=== PATIENT | male | born 1975 | race Caucasian/White ===

== ENCOUNTER 2017-07-27 13:30 | Emergency (ER) | payer SELFPAY ==
[~2017-07-27] VITALS: Ht 172.7 cm; Wt 71.8 kg
[2017-07-27] MEDS ORDERED: KETOROLAC 30 MG/1 ML IM ONE (14:30)
[2017-07-27] MEDS ORDERED: DIAZEPAM 5 MG TABLET PO ONE (14:30)
[2017-07-27] MEDS ORDERED: DIAZEPAM 5 MG TABLET ONE (14:57)
[2017-07-27] MEDS ORDERED: KETOROLAC 30 MG/1 ML ONE (14:58)
[2017-07-27 15:42] VITALS: BP 122/62
== END 2017-07-27 15:44 | disposition home or self-care (01) ==
LOC: EDBD 13:30 → ED 15:38
DX: S39.012A Strain of muscle, fascia and tendon of lower back, initial encounter (principal); F17.200 Nicotine dependence, unspecified, uncomplicated; X58.XXXA Exposure to other specified factors, initial encounter; Y93.89 Activity, other specified; Y92.89 Other specified places as the place of occurrence of the external cause; Y99.8 Other external cause status
CPT/HCPCS: 72110; 96372; 99284; J1885

== ENCOUNTER 2019-02-23 14:16 | Emergency (ER) | payer BC ==
[~2019-02-23] VITALS: Ht 172.7 cm; Wt 75.0 kg
--- NOTE | 2019-02-23 14:56 | NUR ---
THIS IS A 43 YO M W/ C/O CHRONIC BACK PAIN X15 YEARS W/ WORSENING PAIN 11/21 THIS MORNING AFTER A CHIROPRACTOR APPT. PATIENTS RESPIRATIONS ARE EVEN AND UNLABORED. NADN. PATIENT IS RESTING ON GURNEY AWAITING XRAY. CALL LIGHT IN REACH. DENIES FURTHER NEEDS AT THIS TIME.
[2019-02-23] MEDS ORDERED: KETOROLAC 30 MG/1 ML ONE (15:09)
[2019-02-23] MEDS ORDERED: HYDROmorphone 1 MG/ML, 1ML INJ ONE ×3 (15:09→17:59)
--- NOTE | 2019-02-23 15:09 | NUR ---
PT UP TO RESTROOM WITH SHUFFLE GAIT. SUGGESTED A URINAL BUT PT REFUSED.
[2019-02-23] MEDS ORDERED: ONDANSETRON ODT 4 MG ONE (15:19)
[2019-02-23] MEDS: HYDROmorphone 2 MG/ML, 1ML IVPush PRN ×2 (15:20→16:12)
--- NOTE | 2019-02-23 15:20 | NUR ---
VERBAL ORDER FOR 15MG TORADOL.
--- NOTE | 2019-02-23 15:22 | NUR ---
PATIENT MEDICATED PER EMAR.
--- NOTE | 2019-02-23 15:26 | NUR ---
XRAY DELAYED DUE TO PT NEEDING PAIN MEDS. RAD CALLED PT NOW RTG.
[2019-02-23] MEDS ORDERED: ONDANSETRON ODT 4 MG PO ONE (15:30)
[2019-02-23] MEDS ORDERED: KETOROLAC 30 MG/1 ML IM ONE (15:30)
[2019-02-23] MEDS ORDERED: HYDROmorphone 2 MG/ML, 1ML IM PRN (15:30)
[2019-02-23] MEDS ORDERED: KETOROLAC 30 MG/1 ML IVPush ONE (15:30)
--- NOTE | 2019-02-23 16:00 | NUR ---
PT INCREASINGLY AGITATED, YELLING OUT INTO [place]. CUSSING ABOUT STATING "I WANT YOU GUYS TO FIX ME, IM NOT A DRUG SEEKER".
--- NOTE | 2019-02-23 16:18 | NUR ---
PT TO MRI
--- NOTE | 2019-02-23 17:05 | NUR ---
PT BACK FROM MRI, STS STILL IN PAIN. PT VERY VERBALLY AGGRESSIVE WITH STAFF. THIS RN TRIED TO EXPLAIN TO PT THAT WE ARE CURRENTLY WAITING FOR RESULTS OF THE MRI TO DETERMINE THE NEXT STEP. EXPLAINED TO PT THAT MD HAS NOT BEEN BACK YET BECAUSE UNTIL RESULTS ARE BACK THERE IS NOTHING MORE WE CAN DO FOR HIS PAIN. ICE PACK OFFERED. PT REQUESTING HEAT. WARM BLANKET PROVIDED TO PT LOWER BACK. CALL LIGHT WITHIN REACH. FAMILY AT BEDSIDE. AWAITING RESULTS AT THIS TIME
--- NOTE | 2019-02-23 17:47 | NUR ---
MD TO BEDSIDE TO TALK WITH PT ABOUT WAITING FOR MRI RESULTS.
[2019-02-23] MEDS ORDERED: DIAZEPAM 5 MG/ML, 2ML ONE (17:58)
[2019-02-23] MEDS ORDERED: HYDROmorphone 2 MG/ML, 1ML IVPush ONE (18:00)
[2019-02-23] MEDS ORDERED: DIAZEPAM 5 MG/ML, 2ML IVPush ONE (18:00)
[2019-02-23 18:10] VITALS: BP 134/79
--- NOTE | 2019-02-23 18:13 | NUR ---
PROVIDER AT BEDSIDE EXPLAINING MRI RESULTS. PT AGITATED. STATES "I DON'T UNDERSTAND WHY I'M IN A HOSPITAL AND YOU GUYS CAN'T HELP ME".
--- NOTE | 2019-02-23 18:31 | NUR ---
PT MEDICATED WITH ADDITIONAL MEDS WHILE MD CAME TO UPDATE PT AND FAMILY ON POC. PT REFUSING TO LISTEN TO DIAGNOSIS AND NEED FOR F/U WITH SPECIALIST. PT THEN TOOK OFF ALL MONITORING, AND RIPPED OUT IV. THIS RN WENT TO MD TO GET REFERAL IN HOPES OF GIVING TO PT PRIOR TO LEAVING UNIT. PAPERS RECEIVED BUT PT AND FAMILY HAD ALREADY LEFT.
== END 2019-02-23 18:34 | disposition left against medical advice (07) ==
LOC: ED 17:38
DX: M54.42 Lumbago with sciatica, left side (principal)
CPT/HCPCS: 72110; 72148; 96374; 96375; 96376; 99284; J1170; J1885; J3360; Q0162

== ENCOUNTER 2019-02-28 02:16 | Emergency (ER) | payer BC ==
[~2019-02-28] VITALS: Ht 172.7 cm; Wt 75.0 kg
[2019-02-28] MEDS ORDERED: LIDODERM 5% PATCH TD ONE ×2 (03:00→03:02)
[2019-02-28] MEDS ORDERED: DIAZEPAM 5 MG TABLET PO ONE (03:00)
[2019-02-28] MEDS ORDERED: ACETAMINOPHEN 500 MG TABLET PO ONE (03:00)
[2019-02-28] MEDS ORDERED: KETOROLAC 30 MG/1 ML IM ONE (03:00)
[2019-02-28] MEDS ORDERED: DIAZEPAM 5 MG TABLET ONE (03:01)
[2019-02-28] MEDS ORDERED: KETOROLAC 30 MG/1 ML ONE (03:01)
[2019-02-28] MEDS ORDERED: ACETAMINOPHEN 500 MG TABLET ONE (03:02)
--- NOTE | 2019-02-28 03:10 | NUR ---
PT MEDICATED PER MAR AT THIS TIME. PT RESTING IN [facility] WITH CALL LIGHT WITHIN REACH.
--- NOTE | 2019-02-28 04:12 | NUR ---
pt asleep in [facility] at this time; loren. pt has call light within reach. awaiting pt disposition at this time.
[2019-02-28] MEDS ORDERED: MORPHINE SULFATE 4 MG/ML, 1ML ONE (04:42)
[2019-02-28] MEDS ORDERED: MORPHINE SULFATE 4 MG/ML, 1ML IVPush PRN (05:00)
--- NOTE | 2019-02-28 05:46 | NUR ---
PT D/C WITH D/C SUMMARY AND SCRIPTS. ALL QUESTIONS ANSWERED. REFERRAL TO NEUROSURGEON PROVIDED PER PT REQUEST. PT SIGNED CONTROLLED SUBSTANCE SHEET WHICH WAS PLACED IN PT CHART. TAXI VOUCHER PROVIDED TO PT FOR SAFE D/C TO PT MOTEL ROOM. PT DENIES ANY OTHER NEEDS PERTAINING TO THIS VISIT.
[2019-02-28 05:50] VITALS: BP 97/66
== END 2019-02-28 05:52 | disposition home or self-care (01) ==
LOC: EDBD 02:16 → ED 03:07
DX: M54.42 Lumbago with sciatica, left side (principal)
CPT/HCPCS: 93005; 96372; 96374; 99283; J1885; J2270

== ENCOUNTER 2019-05-12 12:51 | Emergency (ER) | payer BC ==
[~2019-05-12] VITALS: Ht 172.7 cm; Wt 69.6 kg
[2019-05-12] MEDS ORDERED: HYDROmorphone 1 MG/ML, 1ML INJ ONE (13:18)
[2019-05-12] MEDS ORDERED: HYDROmorphone 1 MG/ML, 1ML INJ IM STA (13:18)
[2019-05-12] MEDS ORDERED: CYCLOBENZAPRINE 10 MG TABLET PO STA (13:18)
[2019-05-12] MEDS ORDERED: CYCLOBENZAPRINE 10 MG TABLET ONE (13:22)
--- NOTE | 2019-05-12 13:33 | NUR ---
Pt at x ray on [facility] at this time. NADN. No needs expressed.
[2019-05-12 14:38] VITALS: BP 116/72
== END 2019-05-12 14:40 | disposition home or self-care (01) ==
LOC: ED 13:20
DX: S22.31XA Fracture of one rib, right side, initial encounter for closed fracture (principal); J98.11 Atelectasis; W10.8XXA Fall (on) (from) other stairs and steps, initial encounter; Y93.89 Activity, other specified; Y92.89 Other specified places as the place of occurrence of the external cause; Y99.8 Other external cause status
CPT/HCPCS: 71101; 93005; 96372; 99283; J1170